=== PATIENT | female | born 1970 | race Two or more races ===

== ENCOUNTER 2023-09-11 14:18 | Emergency (ER) | payer MEDICAID ==
[~2023-09-11] VITALS: Ht 175.3 cm; Wt 91.8 kg
[2023-09-11 14:43] VITALS: BP 139/90; PULSE 71; RESP 16; TEMP 98.6; O2SAT 98
[2023-09-11] MEDS ORDERED: FLUORESCEIN SOD OPTH TEST STRIP OP ONE (15:00)
[2023-09-11] MEDS ORDERED: CIPR0.3S67 OP (15:14)
== END 2023-09-11 15:27 | disposition home or self-care (01) ==
LOC: ER 14:18
DX: S05.02XA Injury of conjunctiva and corneal abrasion without foreign body, left eye, initial encounter (principal); H10.32 Unspecified acute conjunctivitis, left eye; Z79.2 Long term (current) use of antibiotics; Z88.1 Allergy status to other antibiotic agents; X58.XXXA Exposure to other specified factors, initial encounter; Y93.89 Activity, other specified; Y92.89 Other specified places as the place of occurrence of the external cause; Y99.8 Other external cause status